=== PATIENT | female | born 1990 | race Caucasian/White ===

== ENCOUNTER 2017-06-19 17:01 | Emergency (ER) | payer MEDICAID ==
[~2017-06-19] VITALS: Ht 160 cm; Wt 59.0 kg
[2017-06-19 17:03] VITALS: BP 131/86
== END 2017-06-19 17:40 | disposition home or self-care (01) ==
LOC: ED 17:34
DX: Z02.9 Encounter for administrative examinations, unspecified (principal)
CPT/HCPCS: 99281